=== PATIENT | male | born 1990 | race Caucasian/White ===

== ENCOUNTER 2022-10-01 10:45 | Emergency (ER) | payer BC, SELFPAY ==
[2022-10-01] VITALS (22 sets, daily range): BP systolic 116–144; BP diastolic 78–106; PULSE 78–113; RESP 16–23; TEMP 36.6; O2SAT 95–99; BMI 20.7
--- NOTE | 2022-10-01 11:44 | CRLHL7_ITS ---
For Patients: As a result of the Century Cures Act, medical imaging exams and procedure reports are released immediately into your electronic medical record. You may view this report before your referring provider. If you have questions, please contact your health care provider. INDICATION: Abdominal pain and nausea. TECHNIQUE: CT abdomen and pelvis acquired with 63 cc Isovue 370 IV contrast. COMPARISON: None. FINDINGS: Lower chest: Unremarkable. Liver: Unremarkable. Normal in size and attenuation. No suspicious masses. Gallbladder and bile ducts: Unremarkable. No stones or inflammation. No biliary dilatation. Pancreas: Unremarkable. No mass or inflammation. Spleen: Unremarkable. Normal in size. No masses. Adrenal glands: Unremarkable. No nodules. Kidneys: Unremarkable. No suspicious masses, stones, or hydronephrosis. GI tract: A right ventral hernia containing small bowel is resulting in the small bowel obstruction. No specific sign of bowel wall ischemia. Remainder of the GI tract is unremarkable. Vasculature: Abdominal aorta is normal in caliber. Mesenteric arteries are patent. Lymph nodes: No lymphadenopathy. Peritoneum/Abdominal Wall: No free air or free fluid. Pelvis: Unremarkable. Bones: Unremarkable for age. IMPRESSION: Right ventral abdominal wall hernia is containing small bowel and is resulting in a small bowel obstruction. Please note that all CT scans at this facility use dose modulation, iterative reconstruction, and/or weight-based dosing when appropriate to reduce radiation dose to as low as reasonably achievable. Dictated by Torres Ornelas MD @ 10/01/2022 2:03:43 PM (Electronically Signed)
[2022-10-01 12:12] LABS: Lactate* 0.6 mmol/L (0.5-1.9)
[2022-10-01 12:14] LABS: Basophils Percent Auto 0.5 % (0.0-3.0); Eosinophils Percent Auto 1.7 % (0.0-7.0); Hemoglobin* 12.9 gm/dL (13.5-17.5); Immature Granulocytes Abs Auto 0.01 K/uL (0.00-0.30); Mean Corpuscular HGB Conc 33 gm/dL (32-36); Mean Corpuscular Hemoglobin 30 pg (26-34); Mean Corpuscular Volume 90 fL (80-100); Monocytes Percent Auto 15.3 % (0.0-11.0); Neutrophils Percent Auto 53.3 % (42.0-72.0); Platelet Count* 237 K/uL (140-440); RDW Coefficient of Variation % 13.8 % (11.5-15.5); Red Blood Count 4.32 m/uL (4.30-5.90); White Blood Count* 4.04 K/uL (4.50-11.00)
[2022-10-01 12:19] LABS: Slide Review Reflex No
[2022-10-01] MEDS: ONDANSETRON 2 MG/ML inj 4 MG IVP (12:23)
[2022-10-01] MEDS: 0.9 % SODIUM CHLORIDE 1000 ml 1,000 ML IV (12:23)
[2022-10-01] MEDS: MORPHINE 4 MG/ML INJ IVP ×2 (12:23→17:19)
[2022-10-01 12:31] LABS: Chloride* 102 mmol/L (96-114); Potassium* 3.8 mmol/L (3.6-5.1); Sodium* 139 mmol/L (135-149)
[2022-10-01 12:34] LABS: Blood Urea Nitrogen* 9 mg/dL (5-24); Carbon Dioxide* 29 mmol/L (20-32); Creatinine* 0.6 mg/dL (0.5-1.5); Est. Creatinine Clearance* 143.81; Estimated Glomerular Filt Rate 131 ml/min; Glucose* 81 mg/dL (60-115)
[2022-10-01 12:35] LABS: Alanine Aminotransferase* 22 U/L (4-50); Alkaline Phosphatase* 123 U/L (40-150); Aspartate Amino Transferase* 33 U/L (12-35); Bilirubin Direct* 0.1 mg/dL (0.0-0.5); Calcium* 9.4 mg/dL (8.4-10.6); Lipase* 64 U/L (23-300); Total Protein* 6.8 g/dL (6.0-8.3)
[2022-10-01 12:44] LABS: C Reactive Protein* < 0.5 mg/dL (0.5-1.0)
[2022-10-01 13:10] LABS: SARS PCR* Negative SARS-CoV-2 (Negative)
--- NOTE | 2022-10-01 13:15 | ED.GENADULT ---
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 He says he feels okay this morning, went for run, was on his way to the hospital for an iron infusion but was starting to develop some abdominal pain and nausea which is coming in waves. By the time he arrived he felt poorly enough that he decided to come to the ER instead. He has not had any vomiting yet but feels that it is imminent. He has crampy, intermittently severe abdominal pain around his ostomy. He has not had much output from the ostomy today although he says that that is not altogether unusual. He has not had any gas into the ostomy either which is more unusual. He has not had any fevers. Denies any bloody output into the ostomy. Has never had problems like this before. Denies any other symptoms such as chest pain, shortness of breath, cough, upper respiratory symptoms or urinary symptoms. His liver transplants [facility] in [facility]. Related Data Home Medications Medication Instructions Recorded Confirmed amoxicillin 875 mg-potassium 1 tab PO PRN 09/13/22 clavulanate 125 mg tablet atorvastatin 10 mg tablet 10 mg PO QAM 09/13/22 10/01/22 azathioprine 50 mg tablet 100 mg PO DAILY 09/13/22 10/01/22 budesonide 3 mg 6 mg PO DAILY 09/13/22 10/01/22 capsule,delayed,extended release cholestyramine-aspartame 4 gram 1 ea PO DAILY 09/13/22 10/01/22 oral powder for susp in a packet (Cholestyramine Light) ergocalciferol (vitamin D2) 1,250 50,000 unit PO .monthly 09/13/22 10/01/22 mcg (50,000 unit) capsule hydroxyzine HCl 25 mg tablet 25 mg PO Q6H PRN itching 09/13/22 10/01/22 pantoprazole 40 mg tablet,delayed 40 mg PO Q12H 09/13/22 10/01/22 release potassium citrate 10 mEq (1,080 20 meq PO TID 09/13/22 10/01/22 mg) tablet,extended release tacrolimus 0.5 mg capsule, 1 mg PO Q12H 09/13/22 10/01/22 immediate-release ursodiol 300 mg capsule 300 mg PO Q12H 09/13/22 10/01/22 Allergies Allergy/AdvReac Type Severity Reaction Status Date / Time droperidol Allergy Intermediate Anxiety Verified 10/01/22 11:58 ferrous gluconate Allergy Intermediate Verified 10/01/22 11:58 ferrous sulfate Allergy Intermediate Verified 10/01/22 11:58 adhesive Allergy Verified 10/01/22 11:58 Review of Systems Status of ROS: Reports: 10 or more systems reviewed and unremarkable except as noted in History and below [facility] Social History Smoking Status: Never smoker Do you use any of these nicotine containing products: None Second hand tobacco smoke exposure: No How often do you have a drink containing alcohol: never How often do you have six or more drinks on one occasion: Never AUDIT-C Alcohol total score: 0 Non-prescribed substance use: denies use service: No Exam Narrative: Exam Narrative: Vital signs as noted above. In general, an alert, nontoxic male. Thin. Head: Normocephalic, atraumatic. Eyes: Pupils are equal reactive. Extraocular movements are full. Conjunctivae are anicteric. ENT: Mucous membranes are moist. Throat is normal. Neck: Supple without lymphadenopathy. Heart: Regular rate and rhythm. No murmur or rub. Lungs: Clear bilaterally. No increased work of breathing, crackles or wheezes. Abdomen: Soft, minimally distended. Bowel sounds present. Ostomy in place, skin surrounding the dressing looks intact without erythema. Diffuse tenderness particularly around the ostomy, less so in the left lateral abdomen. No rebound guarding or rigidity. Extremities: Well perfused. No edema. No calf tenderness. Pulses intact. Neurologic: Patient is alert and oriented to person and place. Speech is fluent. Face is symmetric. Moves all extremities equally. Affect: Normal. Skin: Warm and dry. Well perfused. Const: Vital Signs, click to edit/add: Vital Signs - 24 hr 10/01/22 10:59 10/01/22 12:27 10/01/22 12:28 Temperature 97.8 F Pulse Rate 93 97 Pulse Rate [Right Pulse Oximeter] 78 Respiratory Rate 16 Blood Pressure 133/94 H Blood Pressure [Ri ght Upper Arm] 137/83 Pulse Oximetry 97 98 98 Oxygen Delivery Me thod Room Air 10/01/22 12:30 10/01/22 12:31 10/01/22 13:00 Temperature Pulse Rate 102 H 103 H 97 Pulse Rate [Right Pulse Oximeter] Respiratory Rate Blood Pressure 125/92 H Blood Pressure [Ri ght Upper Arm] Pulse Oximetry 95 95 95 Oxygen Delivery Me thod 10/01/22 13:01 10/01/22 13:30 10/01/22 13:31 Temperature Pulse Rate 103 H 106 H 103 H Pulse Rate [Right Pulse Oximeter] Respiratory Rate Blood Pressure 125/93 H 121/97 H Blood Pressure [Ri ght Upper Arm] Pulse Oximetry 96 98 98 Oxygen Delivery Me thod 10/01/22 13:32 10/01/22 16:20 10/01/22 16:32 Temperature Pulse Rate 96 Pulse Rate [Right Pulse Oximeter] Respiratory Rate Blood Pressure 123/89 116/84 Blood Pressure [Ri ght Upper Arm] Pulse Oximetry 98 Oxygen Delivery Me thod 10/01/22 17:01 10/01/22 17:28 10/01/22 17:30 Temperature Pulse Rate 101 H 113 H Pulse Rate [Right Pulse Oximeter] Respiratory Rate Blood Pressure 124/90 H Blood Pressure [Ri ght Upper Arm] Pulse Oximetry 96 95 Oxygen Delivery Me thod 10/01/22 17:38 10/01/22 17:41 10/01/22 17:46 Temperature Pulse Rate 101 H 103 H 108 H Pulse Rate [Right Pulse Oximeter] Respiratory Rate 20 23 20 Blood Pressure 131/93 H 133/98 H 144/106 H Blood Pressure [Ri ght Upper Arm] Pulse Oximetry 98 97 99 Oxygen Delivery Me thod 10/01/22 17:51 10/01/22 17:57 10/01/22 19:31 Temperature Pulse Rate 109 H 91 Pulse Rate [Right Pulse Oximeter] Respiratory Rate 18 Blood Pressure 138/94 H 133/92 H Blood Pressure [Ri ght Upper Arm] Pulse Oximetry 99 96 Oxygen Delivery Me thod 10/01/22 19:32 Temperature Pulse Rate 106 H Pulse Rate [Right Pulse Oximeter] Respiratory Rate Blood Pressure 118/78 Blood Pressure [Ri ght Upper Arm] Pulse Oximetry 96 Oxygen Delivery Me thod Documenting provider has reviewed patient's vital signs: yes Course Course Hospital Course: An IV was placed, patient was given a L of normal saline, Zofran 4 mg IV as well as 4 mg of IV morphine. Symptoms were improved. I ordered a CT scan of the abdomen with IV contrast. Labs overall fairly reassuring. White blood cell count mildly low at 4.0. Hemoglobin 12.9. Electrolytes are normal as are LFTs. CRP less than 0.5. Lipase normal. COVID negative. Abdominal CT scan by my review showed small-bowel obstruction. Final radiology report is read as small bowel obstruction with a small portion of bowel in a ventral hernia. I reviewed this with General surgery here, hernia is peristomal. Bowel is likely not strangulated at this time given patient's relatively benign presentation and normal labs, however it is incarcerated. In talking with General surgery, she did not feel that patient was in any way a candidate for surgery here for definitive repair of this given his complex medical history and transplant status. I called around initially on receiving the initial radiology report, at about 3:00 p.m., and determined that there were no beds available at any facility in [place] where transplants are done, including [facility] where they do not do liver transplants but they do other transplants. I also called the [facility] but they also did not have any bed availability. I did speak with the transplant fellow, who did not have any other specific suggestions, certainly no where else in [place] where it would be in option to send him. At that point, Dr. Vallecillo did attempt a reduction of his hernia, 1st with additional pain medication and then 2nd with propofol with the assistance of Anesthesia. A repeat CT scan showed that the attempted reduction was not successful. Dr. Vallecillo felt that the patient needed to go to the operating room urgently at this point to relieve the incarcerated bowel. I made phone calls again to [facility] and [facility], and was again told that no beds were available. However, Anesthesia here was not comfortable taking the patient to the OR. Therefore, I contacted the [facility] a 3rd time, and spoke with the surgeon on-call there. At that time, we also spoke with the ER, and arranged for an ER to ER transfer given that we have no means of caring for his very significant medical problem here at [place]. At this time, he does continue to have abdominal pain, has not developed vomiting, vital signs show him to be borderline tachycardic with a pulse of 96, blood pressure is 123/89. He is afebrile. Plan is transfer to the ER at [facility] for definitive care. Vital Signs Vital signs: Initial Vital Signs Temperature 97.8 F 10/01/22 10:59 Temperature Source Temporal Artery Scan 10/01/22 10:59 Pulse Rate 78 10/01/22 10:59 Respiratory Rate 16 10/01/22 10:59 Blood Pressure 137/83 10/01/22 10:59 Blood Pressure Mean 101 10/01/22 10:59 Blood Pressure Position Sitting 10/01/22 10:59 Pulse Oximetry 97 10/01/22 10:59 Oxygen Delivery Method 10/01/22 10:59 Vital Signs Temperature 97.8 F 10/01/22 10:59 Pulse Rate 78 10/01/22 10:59 Respiratory Rate 16 10/01/22 10:59 Blood Pressure 137/83 10/01/22 10:59 Pulse Oximetry 97 10/01/22 10:59 Oxygen Delivery Method 10/01/22 10:59 Temperature 97.8 F 10/01/22 10:59 Pulse Rate 106 H 10/01/22 19:32 Respiratory Rate 18 10/01/22 17:51 Blood Pressure 118/78 10/01/22 19:32 Pulse Oximetry 96 10/01/22 19:32 Oxygen Delivery Method 10/01/22 10:59 Medical Decision Making Lab Data Labs: Lab Results 10/01/22 10/01/22 10/01/22 Range/Units 12:00 12:07 12:07 WBC 4.04 L (4.50-11.00) K/uL RBC 4.32 (4.30-5.90) m/uL Hgb 12.9 L (13.5-17.5) gm/dL Hct 39.0 (37.0-53.0) % MCV 90 (80-100) fL MCH 30 (26-34) pg MCHC 33 (32-36) gm/dL RDW Coeff of Tisha 13.8 (11.5-15.5) % Plt Count 237 (140-440) K/uL Neut % (Auto) 53.3 (42.0-72.0) % Lymph % (Auto) 29.0 (20-44) % Wetzel % (Auto) 15.3 H (0.0-11.0) % Eos % (Auto) 1.7 (0.0-7.0) % Baso % (Auto) 0.5 (0.0-3.0) % Neut # (Auto) 2.20 (1.7-7.0) K/uL Lymph # (Auto) 1.20 (0.90-2.90) K/uL Wetzel # (Auto) 0.60 (0.00-0.90) K/UL Eos # (Auto) 0.10 (0.00-0.50) K/uL Baso # (Auto) 0.00 (0.00-0.30) K/uL Abs Immat Gran (auto) 0.01 (0.00-0.30) K/uL INR (0.91-1.10) Sodium 139 (135-149) mmol/L Potassium 3.8 (3.6-5.1) mmol/L Chloride 102 (96-114) mmol/L Carbon Dioxide 29 (20-32) mmol/L BUN 9 (5-24) mg/dL Creatinine 0.6 (0.5-1.5) mg/dL Estimated Creat Clear 143.81 Estimated GFR 131 ml/min Glucose 81 (60-115) mg/dL Lactate (0.5-1.9) mmol/L Calcium 9.4 (8.4-10.6) mg/dL Total Bilirubin 1.0 (0.1-1.5) mg/dL Direct Bilirubin 0.1 (0.0-0.5) mg/dL AST 33 (12-35) U/L ALT 22 (4-50) U/L Alkaline Phosphatase 123 (40-150) U/L C-Reactive Protein < 0.5 L (0.5-1.0) mg/dL Total Protein 6.8 (6.0-8.3) g/dL Albumin 4.0 (3.3-5.0) g/dL Lipase 64 (23-300) U/L SARS-CoV-2 (PCR) (Negative) 10/10/01/22 10/01/22 Range/Units 12:07 12:07 14:30 WBC (4.50-11.00) K/uL RBC (4.30-5.90) m/uL Hgb (13.5-17.5) gm/dL Hct (37.0-53.0) % MCV (80-100) fL MCH (26-34) pg MCHC (32-36) gm/dL RDW Coeff of Tisha (11.5-15.5) % Plt Count (140-440) K/uL Neut % (Auto) (42.0-72.0) % Lymph % (Auto) (20-44) % Wetzel % (Auto) (0.0-11.0) % Eos % (Auto) (0.0-7.0) % Baso % (Auto) (0.0-3.0) % Neut # (Auto) (1.7-7.0) K/uL Lymph # (Auto) (0.90-2.90) K/uL Wetzel # (Auto) (0.00-0.90) K/UL Eos # (Auto) (0.00-0.50) K/uL Baso # (Auto) (0.00-0.30) K/uL Abs Immat Gran (auto) (0.00-0.30) K/uL INR 1.18 H (0.91-1.10) Sodium (135-149) mmol/L Potassium (3.6-5.1) mmol/L Chloride (96-114) mmol/L Carbon Dioxide (20-32) mmol/L BUN (5-24) mg/dL Creatinine (0.5-1.5) mg/dL Estimated Creat Clear Estimated GFR ml/min Glucose (60-115) mg/dL Lactate 0.6 (0.5-1.9) mmol/L Calcium (8.4-10.6) mg/dL Total Bilirubin (0.1-1.5) mg/dL Direct Bilirubin (0.0-0.5) mg/dL AST (12-35) U/L ALT (4-50) U/L Alkaline Phosphatase (40-150) U/L C-Reactive Protein (0.5-1.0) mg/dL Total Protein (6.0-8.3) g/dL Albumin (3.3-5.0) g/dL Lipase (23-300) U/L SARS-CoV-2 (PCR) Negative SARS-CoV-2 (Negative) Discharge Plan Discharge Clinical Impression: Parastomal hernia, Liver transplanted, Small bowel obstruction Patient Disposition: Xfer Other Discharge Location: [facility] Condition: Stable Prescriptions: No Action atorvastatin 10 mg tablet 10 mg PO QAM azathioprine 50 mg tablet 100 mg PO DAILY Label Comments: TAKE 2 TABLETS BY MOUTH ONE TIME DAILY. potassium citrate 10 mEq (1,080 mg) tablet extended release 20 meq PO TID Label Comments: TAKE 2 TABLETS BY MOUTH THREE TIMES DAILY pantoprazole 40 mg tablet,delayed release (DR/EC) 40 mg PO Q12H ursodiol 300 mg capsule 300 mg PO Q12H Label Comments: TAKE 2 CAPSULES BY MOUTH ONCE A DAY IN THE MORNING AND 1 CAPSULE ONCE TIME DAILY IN THE EVENING. hydroxyzine HCl 25 mg tablet 25 mg PO Q6H PRN (Reason: itching) ergocalciferol (vitamin D2) 1,250 mcg (50,000 unit) capsule 50,000 unit PO .monthly Label Comments: TAKE ONE CAPSULE BY MOUTH EVERY FOUR WEEKS budesonide 3 mg capsule,delayed,extend.release 6 mg PO DAILY amoxicillin-pot clavulanate 875-125 mg tablet 1 tab PO PRN Label Comments: TAKE 1 TABLET BY MOUTH EVERY AM AND 1 IN THE PM IF PERSISTENT FEVER/CHILLS tacrolimus 0.5 mg capsule 1 mg PO Q12H Label Comments: TAKE 1 CAPSULE BY MOUTH TWICE DAILY. cholestyramine-aspartame [Cholestyramine Light] 4 gram powder in packet 1 ea PO DAILY Label Comments: MIX AND DRINK 1 PACKET BY MOUTH EVERY DAY Stand Alone Forms: [facility] Info Instructions
[2022-10-01 15:12] LABS: INR 1.18 (0.91-1.10); Prothrombin Time 15.7 Seconds
--- NOTE | 2022-10-01 17:53 | CRLHL7_ITS ---
For Patients: As a result of the Cures Act, medical imaging exams and procedure reports are released immediately into your electronic medical record. You may view this report before your referring provider. If you have questions, please contact your health care provider. INDICATION: Incarcerated hernia. TECHNIQUE: CT abdomen and pelvis acquired without contrast. COMPARISON: 10/01/2022. FINDINGS: Again demonstrated is a right anterior ventral hernia containing incarcerated small bowel resulting in the partial small bowel obstruction. The degree of bowel distention may have slightly improved. These findings are otherwise unchanged. The liver is normal in size, shape and attenuation. Unremarkable gallbladder. No biliary dilatation. The spleen, adrenal glands and pancreas are within normal limits. The kidneys are unremarkable. Pelvic organs are unremarkable. No lymphadenopathy evident. No free air or significant free fluid. The lung bases are clear. IMPRESSION: No significant change in appearance of a right ventral incarcerated hernia resulting in a small bowel obstruction. Please note that all CT scans at this facility use dose modulation, iterative reconstruction, and/or weight-based dosing when appropriate to reduce radiation dose to as low as reasonably achievable. Dictated by Torres Ornelas MD @ 10/01/2022 6:40:35 PM (Electronically Signed)
--- NOTE | 2022-10-01 17:54 | PM.GSCN ---
History of Present Illness Consult details Date Seen: 10/01/22 Consult date: 10/01/22 Reason for consult: hernia Narrative: Patient presents with worsening abdominal pain at his stoma site. He went for a run this morning and around 6am started to have pain on the right side of his stoma. He has never had pain like this before and presented to the ED when the pain worsened. Initially he says the pain would come in waves, but it is now more persistent. He did have some associated nausea, denies any emesis. Last had stool in his ileostomy bag this morning at 6 am. Denies any fever or chills. His surgical history is positive for 2 liver transplants, secondary to sclerosing cholangitis. He has also had his colon removed for suspected ulcerative colitis, which patient states is no more consistent with a diagnosis of Crohn's disease. He is currently on immune suppression therapy. Review of Systems Status of ROS: Reports: 10 or more systems reviewed and unremarkable except as noted in History and below PFSH [facility] Social History Smoking Status: Never smoker Do you use any of these nicotine containing products: None Second hand tobacco smoke exposure: No How often do you have a drink containing alcohol: never How often do you have six or more drinks on one occasion: Never AUDIT-C Alcohol total score: 0 Non-prescribed substance use: denies use service: No Meds Home Medications and Allergies Home Medications Medication Instructions Recorded Confirmed Type amoxicillin 875 mg-potassium 1 tab PO PRN 09/13/22 History clavulanate 125 mg tablet atorvastatin 10 mg tablet 10 mg PO QAM 09/13/22 10/01/22 History azathioprine 50 mg tablet 100 mg PO DAILY 09/13/22 10/01/22 History budesonide 3 mg 6 mg PO DAILY 09/13/22 10/01/22 History capsule,delayed,extended release cholestyramine-aspartame 4 gram 1 ea PO DAILY 09/13/22 10/01/22 History oral powder for susp in a packet (Cholestyramine Light) ergocalciferol (vitamin D2) 1,250 50,000 unit PO .monthly 09/13/22 10/01/22 History mcg (50,000 unit) capsule hydroxyzine HCl 25 mg tablet 25 mg PO Q6H PRN itching 09/13/22 10/01/22 History pantoprazole 40 mg tablet,delayed 40 mg PO Q12H 09/13/22 10/01/22 History release potassium citrate 10 mEq (1,080 20 meq PO TID 09/13/22 10/01/22 History mg) tablet,extended release tacrolimus 0.5 mg capsule, 1 mg PO Q12H 09/13/22 10/01/22 History immediate-release ursodiol 300 mg capsule 300 mg PO Q12H 09/13/22 10/01/22 History Allergies Allergy/AdvReac Type Severity Reaction Status Date / Time droperidol Allergy Intermediate Anxiety Verified 10/01/22 11:58 ferrous gluconate Allergy Intermediate Verified 10/01/22 11:58 ferrous sulfate Allergy Intermediate Verified 10/01/22 11:58 adhesive Allergy Verified 10/01/22 11:58 Exam Narrative: Exam Narrative: General: Alert and oriented, nontoxic in appearance Respiratory: Equal breath rise bilaterally, maintained on room air CV: Regular rhythm rate Abdomen: Soft, nondistended, tender to palpation around stoma with some guarding no rebound. Const: Vital Signs, click to edit/add: Vital Signs - 24 hr 10/01/22 10:59 10/01/22 12:27 10/01/22 12:28 Temperature 97.8 F Pulse Rate 93 97 Pulse Rate [Right Pulse Oximeter] 78 Respiratory Rate 16 Blood Pressure 133/94 H Blood Pressure [Ri ght Upper Arm] 137/83 Pulse Oximetry 97 98 98 Oxygen Delivery Me thod Room Air 10/01/22 12:30 10/01/22 12:31 10/01/22 13:00 Temperature Pulse Rate 102 H 103 H 97 Pulse Rate [Right Pulse Oximeter] Respiratory Rate Blood Pressure 125/92 H Blood Pressure [Ri ght Upper Arm] Pulse Oximetry 95 95 95 Oxygen Delivery Me thod 10/01/22 13:01 10/01/22 13:30 10/01/22 13:31 Temperature Pulse Rate 103 H 106 H 103 H Pulse Rate [Right Pulse Oximeter] Respiratory Rate Blood Pressure 125/93 H 121/97 H Blood Pressure [Ri ght Upper Arm] Pulse Oximetry 96 98 98 Oxygen Delivery Me thod 10/01/22 13:32 10/01/22 16:20 Temperature Pulse Rate 96 Pulse Rate [Right Pulse Oximeter] Respiratory Rate Blood Pressure 123/89 Blood Pressure [Ri ght Upper Arm] Pulse Oximetry 98 Oxygen Delivery Me thod Results Labs Labs: Abnormal lab results 10/01/22 10/01/22 10/01/22 Range/Units 12:00 12:07 14:30 WBC 4.04 L (4.50-11.00) K/uL Hgb 12.9 L (13.5-17.5) gm/dL [place] % (Auto) 15.3 H (0.0-11.0) % INR 1.18 H (0.91-1.10) C-Reactive Protein < 0.5 L (0.5-1.0) mg/dL Diabetes panel 10/01/22 10/01/22 Range/Units 12:07 12:07 Sodium 139 (135-149) mmol/L Potassium 3.8 (3.6-5.1) mmol/L Chloride 102 (96-114) mmol/L Carbon Dioxide 29 (20-32) mmol/L BUN 9 (5-24) mg/dL Creatinine 0.6 (0.5-1.5) mg/dL Glucose 81 (60-115) mg/dL Calcium 9.4 (8.4-10.6) mg/dL AST 33 (12-35) U/L ALT 22 (4-50) U/L Alkaline Phosphatase 123 (40-150) U/L Total Protein 6.8 (6.0-8.3) g/dL Albumin 4.0 (3.3-5.0) g/dL Calcium panel 10/01/22 10/01/22 Range/Units 12:07 12:07 Calcium 9.4 (8.4-10.6) mg/dL Albumin 4.0 (3.3-5.0) g/dL Pituitary panel 10/01/22 Range/Units 12:07 Sodium 139 (135-149) mmol/L Potassium 3.8 (3.6-5.1) mmol/L Chloride 102 (96-114) mmol/L Carbon Dioxide 29 (20-32) mmol/L BUN 9 (5-24) mg/dL Creatinine 0.6 (0.5-1.5) mg/dL Glucose 81 (60-115) mg/dL Calcium 9.4 (8.4-10.6) mg/dL Adrenal panel 10/01/22 10/01/22 Range/Units 12:07 12:07 Sodium 139 (135-149) mmol/L Potassium 3.8 (3.6-5.1) mmol/L Chloride 102 (96-114) mmol/L Carbon Dioxide 29 (20-32) mmol/L BUN 9 (5-24) mg/dL Creatinine 0.6 (0.5-1.5) mg/dL Glucose 81 (60-115) mg/dL Calcium 9.4 (8.4-10.6) mg/dL Total Bilirubin 1.0 (0.1-1.5) mg/dL AST 33 (12-35) U/L ALT 22 (4-50) U/L Alkaline Phosphatase 123 (40-150) U/L Total Protein 6.8 (6.0-8.3) g/dL Albumin 4.0 (3.3-5.0) g/dL All other labs normal. Imaging Abdomen CT scan report/results: report reviewed and image reviewed Assessment and Plan Assessment and plan (1) Parastomal hernia: Status: Acute Plan Patient is a 32-year-old male, with a very complex surgical history, who presented to the emergency department with worsening abdominal pain around his stoma. Workup was obtained with CT scan demonstrating a parastomal hernia, with incarcerated small bowel. He also has an associated small bowel obstruction secondary to this. A reduction was attempted at bedside, utilizing procedural sedation, which unfortunately was unsuccessful. Patient is on immunosuppressive therapy. On evaluation his vitals are stable, he has mild tachycardia. Labs demonstrate leukopenia, consistent with his immunosuppressive medications. INR is slightly elevated 1.18, platelets 280. Given the presence of incarcerated small bowel and associated obstruction risks and benefits of going to the operating room were discussed at length the patient. I initially discussed this with the emergency room physician, with recommendations for transfer to a tertiary center. I also informed the patient that I do not have experience with transplant patients. Unfortunately there is no bed availability in [facility]. I do not think this should be observed, with concern for developing strangulation of the small intestine. Addendum: Anesthesia was notified of the patient needing to proceed to the operating room. This was discussed with the [employer] compensation vice president, who also reached out to Dr. Harris the anesthesiologist. They do not feel comfortable taking the patient to the operating room, which does unfortunately prevent me from proceeding further at this time. Please see their note for further details. Patient was accepted at the [facility] emergency department for transfer.
[2022-10-01] MEDS: HYDROmorphone 0.5 mg/0.5 ml inj IVP (19:55)
== END 2022-10-01 20:31 | disposition other institution (70) ==
PROVIDERS: Emergency Provider Emergency Medicine; PCP Family Medicine
DX: K43.5 Parastomal hernia without obstruction or gangrene (principal); K56.609 Unspecified intestinal obstruction, unspecified as to partial versus complete obstruction; Z94.4 Liver transplant status
CPT/HCPCS: 36415; 74150; 74177; 80048; 80076; 83605; 83690; 85025; 85610; 86140; 87635; 96374; 96375; 96376; 99284; 99285; J1170; J2270; J2405; J7030; Q9967

== ENCOUNTER 2022-10-01 20:04 | Outpatient (CLI) | payer BC, SELFPAY | END 2022-10-01 20:05 | disposition home or self-care (01) | LOC: AMB 10-19 07:25 | PROVIDERS: PCP Family Medicine; Visit Provider Family Medicine | DX: K56.609 Unspecified intestinal obstruction, unspecified as to partial versus complete obstruction (principal) | CPT/HCPCS: A0425; A0426 ==

== ENCOUNTER 2023-01-04 11:00 | Outpatient (RCR) | payer BC, SELFPAY ==
--- NOTE | 2022-09-11 15:16 | URNOTE ---
Addendum entered by Manisha Morales RN 09/25/22 14:05: Updating dates: Received request for prior authorization for Entyvio ([id number]). Per [employer] [place], this has been approved week 0,2,6 and then every 8 weeks from 09/10/2022 to 11/08/2022. per faxed approval Ref#[id number]. Original Note: Received request for prior authorization for Entyv[employer] ([id number]). Per [employer] [place], this has been [place] week 0,2,6 and then every 8 weeks from 09/10/2022-19/07/2022.Ref #[id number]
[2022-09-13 08:27] VITALS: BP 130/93; PULSE 85; RESP 16; TEMP 36.9; O2SAT 96
[2022-09-13] MEDS: VEDOLIZUMAB 300 MG, TUBING SECONDARY 1 EACH in 0.9 % SODIUM CHLORIDE 250 ml 250 ML 510 MG IVPB (08:50)
--- NOTE | 2022-09-27 15:18 | URNOTE ---
Received request for prior authorization for Coral ([id number]). Per [employer], prior authorization is not required. Ref #[id number]
[2022-09-28 08:30] VITALS: BP 121/84; PULSE 96; RESP 16; TEMP 36.7; O2SAT 100
[2022-09-28] MEDS: IRON SUCROSE COMPLEX 200 MG in 0.9 % SODIUM CHLORIDE 100 ml 100 ML 440 MG IVPB (09:14)
[2022-09-28 09:40] VITALS: BP 118/78; PULSE 96; RESP 16; O2SAT 100
[2022-09-28] MEDS: VEDOLIZUMAB 300 MG, TUBING SECONDARY 1 EACH in 0.9 % SODIUM CHLORIDE 250 ml 250 ML 510 MG IVPB (09:56)
[2022-09-28 10:00] VITALS: BP 119/81; PULSE 87; RESP 16; TEMP 36.9; O2SAT 97
[2022-10-01 10:26] VITALS: BP 127/90; PULSE 84; RESP 16; TEMP 36.4; O2SAT 99
--- NOTE | 2022-10-01 10:43 | ONC.NURNOTE ---
Patient arrived stating he felt OK but hasn't had any output in his ileostomy since 6am and has alot of gas. Also admits to no food this am but did have a boost. Offered patient something to drink and a snack and he declined stating he had no appetite. Went to order his iron and after getting back patient stated he didn't feel good at all now and was nauseated. Stated he went for a run this am but now feels sick and debated on coming or going to ED and continuity writer uncomfortable giving a second dose of iron and patient agrees so left infusion center and is going to the ED and will call for next dose.
--- NOTE | 2022-10-02 09:12 | ONC.NURNOTE ---
Dx: Ulcerative Colitis
[2022-10-05] MEDS: IRON SUCROSE COMPLEX 200 MG in 0.9 % SODIUM CHLORIDE 100 ml 100 ML 440 MG IVPB (13:33)
[2022-10-05 14:25] VITALS: BP 126/90; PULSE 80; RESP 18; TEMP 37.1; O2SAT 98
[2022-10-12 08:30] VITALS: BP 118/82; PULSE 85; RESP 16; TEMP 36.8; O2SAT 98
[2022-10-12] MEDS: IRON SUCROSE COMPLEX 200 MG in 0.9 % SODIUM CHLORIDE 100 ml 100 ML 440 MG IVPB (09:08)
[2022-10-26 08:30] VITALS: BP 121/83; PULSE 89; RESP 18; TEMP 36.3; O2SAT 99
[2022-10-26] MEDS: VEDOLIZUMAB 300 MG, TUBING SECONDARY 1 EACH in 0.9 % SODIUM CHLORIDE 250 ml 250 ML 510 MG IVPB (09:06)
--- NOTE | 2022-12-26 09:58 | URNOTE ---
Received request for Entyvio(J3380), 300mg every 8 weeks. Per [employer] [place], this has been denied as records submitted do not show that you are demonstrating a positive response to the requested medication See scanned denial.
--- NOTE | 2023-01-02 11:50 | URNOTE ---
Addendum entered by María Dc RN 01/02/23 12:21: Confirmed that this is for outpatient hospital administration by Kacie Knapp at [facility], ref # [id number] Original Note: Prior authorization has been approved for Elpidio (J3380), 12/24/2022-06/22/2024 Auth # [id number]
--- NOTE | 2023-01-03 11:50 | ONC.NURNOTE ---
Patient called to schedule his next infusion and was told that will schedule one and then will need to talk with insurance again. He notes that he was told he can have one more infusion here, then will need to go to stand alone clinic. He is working on transfering information to [place]. Patient scheduled for tomorrow for infusion.
[2023-01-04 11:02] VITALS: BP 115/76; PULSE 75; RESP 14; TEMP 36.6; O2SAT 96
[2023-01-04] MEDS: VEDOLIZUMAB 300 MG, TUBING SECONDARY 1 EACH in 0.9 % SODIUM CHLORIDE 250 ml 250 ML 510 MG IVPB (11:39)
== END 2023-03-12 23:59 | disposition home or self-care (01) ==
LOC: CCIC 11:00
PROVIDERS: PCP Family Medicine; Referring Provider Family Medicine; Visit Provider Clinical Nurse Specialist
DX: K51.90 Ulcerative colitis, unspecified, without complications (principal)
CPT/HCPCS: 96365; 96366; 96374; 96413; J1756; J3380; J7050